=== PATIENT | male | born 1975 | race Hispanic/Latino ===

== ENCOUNTER 2022-07-11 17:13 | Inpatient (IN) | payer OTHER ==
[~2022-07-11] VITALS: Ht 170.2 cm; Wt 83.2 kg
[2022-07-11] MEDS ORDERED: 0.9%NACL 1000ML 1,000 ML IV ONE (18:00)
[2022-07-11] MEDS ORDERED: ONDANSETRON 4MG INJ IVP ONE (18:00)
[2022-07-11 18:02] LABS: BASOPHILS % (AUTO) 0.3 % (0.0-5.0); LYMPHOCYTES % (AUTO) 10.9 % (21.0-51.0); MEAN CORPUSCULAR HEMOGLOBIN 29.4 pg (27.0-33.0); MEAN CORPUSCULAR HGB CONC 34.2 g/dL (32.0-36.0); MEAN CORPUSCULAR VOLUME 85.9 fL (79-99); NEUTROPHILS % (AUTO) 82.2 % (40.0-77.0); PLATELET COUNT (AUTO) 221 K/uL (130-400); RED BLOOD CELL COUNT(AUTO) 5.24 MIL/uL (4.50-6.20); RED CELL DISTRIBUTION WIDTH 12.6 % (11.0-15.5); WHITE BLOOD COUNT (AUTO) 10.4 K/uL (4.8-10.8)
[2022-07-11 19:14] LABS: ALBUMIN 3.7 g/dL (3.5-5.0); ASPARTATE AMINOTRANSFERASE 271 U/L (10-37); CARBON DIOXIDE 23 mmol/L (21-32); CHLORIDE 95 mmol/L (101-111); CREATININE 0.8 mg/dL (0.5-1.5); GLOMERULAR FILTR. RATE CALC 111 mL/min (>90); GLUCOSE,RANDOM 273 mg/dL (70-105); POTASSIUM 3.5 mmol/L (3.5-5.1); SODIUM SERUM 133 mmol/L (136-145); TOTAL PROTEIN, SERUM 7.8 g/dL (6.0-8.3); UREA NITROGEN, BLOOD 11 mg/dL (7-18)
[2022-07-11 19:17] LABS: LIPASE < 50 U/L (114-286)
[2022-07-11 19:19] LABS: ALANINE AMINOTRANSFERASE 611 U/L (12-78)
[2022-07-11 19:31] LABS: ABG OXYGEN SATURATION 50.1 % (95.0-99.0); BASE EXCESS,VENOUS BLOOD GAS -1.8 (-2.0-3.0); HCO3,VENOUS BLOOD GAS 22.6 (21.0-28.0); PCO2,VENOUS BLOOD GAS 38 (35-48); PH,VENOUS BLOOD GAS 7.395 (7.350-7.450)
[2022-07-11 19:36] LABS: APPEARANCE,URINE CLEAR (CLEAR); BILIRUBIN,URINE NEGATIVE (NEGATIVE); COLOR,URINE YELLOW (YELLOW); GLUCOSE, URINE (UA) >=1000 mg/dL (NEGATIVE); KETONES,URINE 150 mg/dL (NEGATIVE); LEUKOCYTE ESTERASE ,URINE NEGATIVE Leu/uL (NEGATIVE); NITRATE,URINE NEGATIVE (NEGATIVE); OCCULT BLOOD,URINE NEGATIVE (NEGATIVE); PH,URINE 5.5 (5.0-8.0); PROTEIN,URINE 20 mg/dL (NEGATIVE); UROBILINOGEN,URINE 0.2 mg/dL (0.2-1.0)
[2022-07-11 19:42] LABS: RBC,URINE 0-1 /HPF (0-1); SQUAMOUS EPITHELIAL CELL,UR RARE /HPF (0-2); WBC,URINE 0-1 /HPF (0-1)
[2022-07-11] MEDS ORDERED: ZOSYN 3.375GM +NS 50ML IVPB ONE (21:00)
[2022-07-11] MEDS ORDERED: LACTULOSE 20 GM/30 ML UDCUP PO PRN (21:30)
[2022-07-11] MEDS ORDERED: ONDANSETRON 4MG INJ IV PRN (21:30)
[2022-07-11] MEDS: LACTATED RINGERS 1000ML 1,000 ML IV SCH (22:39)
[2022-07-11] MEDS: CEFTRIAXONE 1G VIAL IVPB SCH (22:39)
[2022-07-12 02:55] VITALS: BP 144/94
[2022-07-12] MEDS: INSULIN HUMULIN R 100 UNIT/ML 3ML SQ SCH ×3 (06:28→12:00)
[2022-07-12] MEDS: LACTATED RINGERS 1000ML 1,000 ML IV SCH ×2 (06:29→17:30)
[2022-07-12 08:00] VITALS: BP 152/88
[2022-07-12 08:23] LABS: BASOPHILS % (AUTO) 0.4 % (0.0-5.0); EOSINOPHILS % (AUTO) 0.4 % (0.0-8.0); LYMPHOCYTES % (AUTO) 17.2 % (21.0-51.0); MEAN CORPUSCULAR HEMOGLOBIN 30.1 pg (27.0-33.0); MEAN CORPUSCULAR HGB CONC 34.5 g/dL (32.0-36.0); MEAN CORPUSCULAR VOLUME 87.3 fL (79-99); MONOCYTES % (AUTO) 6.6 % (3.0-13.0); NEUTROPHILS % (AUTO) 74.8 % (40.0-77.0); PLATELET COUNT (AUTO) 206 K/uL (130-400); RED BLOOD CELL COUNT(AUTO) 4.58 MIL/uL (4.50-6.20); RED CELL DISTRIBUTION WIDTH 12.7 % (11.0-15.5); WHITE BLOOD COUNT (AUTO) 10.8 K/uL (4.8-10.8)
[2022-07-12 08:47] LABS: CREATININE 0.7 mg/dL (0.5-1.5); CRP QUANTITATIVE 56.3 mg/L (0.00-9.0); POTASSIUM 3.5 mmol/L (3.5-5.1); TOTAL PROTEIN, SERUM 6.7 g/dL (6.0-8.3)
[2022-07-12 09:24] LABS: ERYTHROCYTE SEDIMENTATION RATE 42 MM/HR (0-15)
[2022-07-12] MEDS: FAMOTIDINE 20MG VIAL IV SCH ×2 (11:22→19:27)
[2022-07-12 12:00] VITALS: BP 147/94
[2022-07-12 16:00] VITALS: BP 155/93
[2022-07-12] MEDS: MORPHINE 2 MG SYG IV PRN ×2 (16:33→21:25)
[2022-07-12] MEDS: CEFTRIAXONE 1G VIAL IVPB SCH (19:27)
[2022-07-12 20:49] VITALS: BP 139/84
[2022-07-12 23:44] VITALS: BP 139/77
[2022-07-13] VITALS (27 sets, daily range): BP systolic 118–161; BP diastolic 72–94
[2022-07-13] MEDS: LACTATED RINGERS 1000ML 1,000 ML IV SCH ×3 (02:42→23:13)
[2022-07-13] MEDS: MORPHINE 2 MG SYG IV PRN ×3 (05:16→22:58)
[2022-07-13 05:31] LABS: HEMATOCRIT 38.9 % (42-54); MEAN CORPUSCULAR HEMOGLOBIN 30.2 pg (27.0-33.0); MEAN CORPUSCULAR HGB CONC 34.7 g/dL (32.0-36.0); RED BLOOD CELL COUNT(AUTO) 4.47 MIL/uL (4.50-6.20); RED CELL DISTRIBUTION WIDTH 12.3 % (11.0-15.5); WHITE BLOOD COUNT (AUTO) 11.4 K/uL (4.8-10.8)
[2022-07-13 05:49] LABS: ALBUMIN 2.8 g/dL (3.5-5.0); CREATININE 0.6 mg/dL (0.5-1.5); POTASSIUM 3.3 mmol/L (3.5-5.1); TOTAL PROTEIN, SERUM 6.5 g/dL (6.0-8.3)
[2022-07-13] MEDS: INSULIN HUMULIN R 100 UNIT/ML 3ML SQ SCH ×5 (06:00→21:14)
[2022-07-13 06:33] LABS: HEMOGLOBIN A1C 12.5 % (4.0-6.0)
[2022-07-13] MEDS: FAMOTIDINE 20MG VIAL IV SCH ×2 (08:28→21:12)
[2022-07-13] MEDS ORDERED: 0.9%NACL 50ML IV SCH (09:00)
[2022-07-13] MEDS ORDERED: POTASSIUM CHLORIDE 20MEQ/100ML 100 ML IV PRN ×2 (09:00→12:30)
[2022-07-13] MEDS ORDERED: MAGNESIUM 2GM PREMIX 50ML 50 ML IV PRN (09:00)
[2022-07-13 10:05] LABS: INR 0.93 (0.85-1.15); PROTHROMBIN TIME 10.2 SEC (9.6-11.6)
[2022-07-13 10:06] LABS: PARTIAL THROMBOPLASTIN TIME 30.1 SEC (26.3-35.5)
[2022-07-13] MEDS ORDERED: PROPOFOL 10 MG/ML 20ML VIAL IV ONE (10:08)
[2022-07-13] MEDS ORDERED: SUCCINYLCHOLINE CHLORIDE 20 MG/ML 10 ML VIAL ONE (10:08)
[2022-07-13] MEDS ORDERED: ROCURONIUM 10MG/1ML SYR 10 MG/ML ML ONE (10:08)
[2022-07-13] MEDS ORDERED: LIDOCAINE PF 100MG/5ML (2%) SYRINGE 5ML ONE (10:08)
[2022-07-13] MEDS ORDERED: MIDAZOLAM HCL 1 MG/ML 2ML VIAL ONE (10:08)
[2022-07-13] MEDS ORDERED: ONDANSETRON 4MG INJ ONE (10:09)
[2022-07-13] MEDS ORDERED: DEXAMETHASONE SOD PHOSPHATE 4 MG/ML 1ML VIAL ONE (10:09)
[2022-07-13] MEDS ORDERED: FENTANYL CITRATE PF 50 MCG/1 ML 2ML VIAL ONE ×2 (10:09→10:59)
[2022-07-13] MEDS ORDERED: BUPIVACAINE/PF 0.5% 30ML VIAL INJ ONE (10:13)
[2022-07-13] MEDS ORDERED: BUPIVACAINE/PF 0.5% 30ML VIAL ONE (10:25)
[2022-07-13 10:27] LABS: CRP QUANTITATIVE 79.9 mg/L (0.00-9.0); MAGNESIUM 1.5 mg/dL (1.80-2.40)
[2022-07-13] MEDS ORDERED: GLYCOPYRROLATE 1 MG/5 ML SYRINGE ONE (10:53)
[2022-07-13] MEDS ORDERED: NEOSTIGMINE 5MG/5ML SYR IV ONE (10:53)
[2022-07-13] MEDS ORDERED: POTASSIUM CHLORIDE 10% ELIXIR 20 MEQ/15 ML UDCUP PO PRN (12:30)
[2022-07-13] MEDS: KCL 20 MEQ ERTAB PO PRN ×3 (12:46→17:52)
[2022-07-13] MEDS: ZOSYN 3.375GM +NS 50ML IVPB SCH ×2 (14:51→18:40)
[2022-07-14] MEDS: ZOSYN 3.375GM +NS 50ML IVPB SCH ×2 (02:10→08:24)
[2022-07-14 04:45] VITALS: BP 170/81
[2022-07-14] MEDS: MORPHINE 2 MG SYG IV PRN (04:53)
[2022-07-14] MEDS ORDERED: MORPHINE 4 MG SYG IVP PRN (05:30)
[2022-07-14] MEDS: INSULIN HUMULIN R 100 UNIT/ML 3ML SQ SCH ×2 (05:49→12:07)
[2022-07-14 06:04] LABS: BASOPHILS % (AUTO) 0.2 % (0.0-5.0); EOSINOPHILS % (AUTO) 0.2 % (0.0-8.0); HEMATOCRIT 38.7 % (42-54); LYMPHOCYTES % (AUTO) 15.4 % (21.0-51.0); MEAN CORPUSCULAR HGB CONC 34.9 g/dL (32.0-36.0); MONOCYTES % (AUTO) 9.2 % (3.0-13.0); NEUTROPHILS % (AUTO) 74.4 % (40.0-77.0); PLATELET COUNT (AUTO) 224 K/uL (130-400); RED CELL DISTRIBUTION WIDTH 12.3 % (11.0-15.5)
[2022-07-14 06:21] LABS: ALBUMIN 2.6 g/dL (3.5-5.0); CREATININE 0.8 mg/dL (0.5-1.5); POTASSIUM 3.6 mmol/L (3.5-5.1); TOTAL PROTEIN, SERUM 6.3 g/dL (6.0-8.3)
[2022-07-14 08:00] VITALS: BP 149/83
[2022-07-14] MEDS: FAMOTIDINE 20MG VIAL IV SCH (08:24)
[2022-07-14] MEDS: KCL 20 MEQ ERTAB PO PRN ×2 (08:25→13:07)
[2022-07-14] MEDS: LACTATED RINGERS 1000ML 1,000 ML IV SCH (09:30)
[2022-07-14 11:37] VITALS: BP 157/83
[2022-07-14] MEDS ORDERED: AMOX1TAB15 PO (14:02)
[2022-07-14] MEDS ORDERED: LISI5TAB21 PO (16:25)
[2022-07-14] MEDS ORDERED: METF-444 PO (16:25)
[2022-07-14] MEDS ORDERED: ATOR10 PO (16:25)
== END 2022-07-14 16:10 | disposition home or self-care (01) | DRG 418 ==
LOC: EDH 17:13 → EDHIP 21:11 → 3AH 07-12 02:37
PROVIDERS: ADMIT Hospitalist; ATTEND Hospitalist
PROC: 0FT44ZZ Resection of Gallbladder, Percutaneous Endoscopic Approach (ICD-10-PCS; principal; 2022-07-13 10:10)
DX: K81.0 Acute cholecystitis (principal); E87.1 Hypo-osmolality and hyponatremia; K82.1 Hydrops of gallbladder; Z20.822 Contact with and (suspected) exposure to COVID-19; K76.0 Fatty (change of) liver, not elsewhere classified; E11.9 Type 2 diabetes mellitus without complications; E83.42 Hypomagnesemia; E87.6 Hypokalemia; K66.0 Peritoneal adhesions (postprocedural) (postinfection)
CPT/HCPCS: 36415; 36600; 74181; 76705; 80053; 81001; 82435; 82803; 82947; 82948; 83036; 83605; 83690; 83735; 84132; 84145; 84295; 85025; 85027; 85610; 85651; 85730; 86140; 87040; 87426; 87880; G0378; J0330; J0696; J1100; J1815; J2001; J2250; J2405; J2543; J2704; J2710; J3010; J3475; J3490; J7030; J7120